=== PATIENT | male | born 1985 | race Caucasian/White ===

== ENCOUNTER → 2019-08-31 | Outpatient (CLI) | payer BC ==
--- NOTE | 2019-08-31 16:08 | KCIC ---
MRI left knee without contrast dated 08/31/2019. No comparison available. Clinical data indication: Left knee pain. TECHNIQUE: Routine multiplanar normal testicles MR imaging performed. FINDINGS: Bone marrow signal is homogeneous. No marrow edema. There is some focal cartilage fissuring at the posterior weightbearing surface of the lateral femoral condyle that appears to extend full-thickness. This measures about 1.5 cm maximum dimension. There is also probable full-thickness cartilage loss at the posterior weightbearing surface of the medial femoral condyle. No definite full-thickness defect of the anterior compartment cartilage. Small joint effusion. No significant popliteal cyst. No intra-articular loose body. Anterior cruciate and posterior cruciate ligaments intact. Medial and lateral collateral complexes are intact. Iliotibial band, popliteus tendon and pes anserine complex within normal limits. Quadriceps and patellar tendon are intact. No abnormality of the medial or lateral retinaculum. There is mild increased signal within the substance of the proximal patellar tendon. Both menisci are normal in morphology and signal. No articular surface tear or para meniscal cyst. IMPRESSION: 1. Multifocal chondromalacia. There are areas of full-thickness to near full-thickness cuff is fissuring at the posterior weightbearing surfaces of the medial femoral condyle and lateral femoral condyle. 2. No evidence of internal derangement. No apparent meniscal tear. 3. Small joint effusion. 4. Mild proximal patellar tendinosis. Electronically signed by: Sarbjit Barajas MD (08/31/2019 4:06 PM) [id number]
== END | disposition home or self-care (01) ==
LOC: KCIC MRI 15:25
DX: M94.262 Chondromalacia, left knee (principal)
CPT/HCPCS: 73721